=== PATIENT | male | born 1965 | race Two or more races ===

== ENCOUNTER 2021-03-08 10:54 | Inpatient (IN) | payer BC, OTHER ==
[~2021-03-08] VITALS: Ht 175.3 cm; Wt 90.7 kg
[2021-03-08 12:22] LABS: Basophils # (auto) 0.1 10 ^3/uL (0-0.2); Eosinophils # (auto) 0.3 10 ^3/uL (0-0.8); Eosinophils % (auto) 4.7 % (0.0-7.0); Hematocrit 45.2 % (41.0-53.0); Lymphocytes # (auto) 1.8 10 ^3/uL (0.4-5.4); Lymphocytes % (auto) 28.8 % (10.0-50.0); Mean Corpuscular Hemoglobin 28.9 pg (28.0-32.0); Mean Corpuscular Hgb Conc. 33.2 g/dL (32.0-36.0); Mean Corpuscular Volume 87.1 fL (80.0-100.0); Monocytes # (auto) 0.7 10 ^3/uL (0-1.3); Monocytes % (auto) 11.5 % (0.0-12.0); Neutrophils # (auto) 3.4 10 ^3/uL (1.6-8.6); Red Blood Cells 5.18 10^6/uL (4.5-5.90); Red Cell Distribution Width 14.6 % (11.8-14.3); White Blood Cell 6.4 10^3/uL (4.4-10.8)
[2021-03-08 12:37] LABS: Albumin 3.4 g/dL (3.4-5.0); Anion Gap 4 (5-15); Blood Urea Nitrogen 22 mg/dL (7-18); Calcium 8.7 mg/dL (8.5-10.1); Carbon Dioxide 29 mmol/L (21-32); Chloride 105 mmol/L (98-107); Glucose 112 mg/dL (74-106); Potassium 4.8 mmol/L (3.5-5.1); Sodium 138 mmol/L (136-145)
[2021-03-08 12:43] LABS: Alanine Aminotransferase 33 U/L (16-61); Alkaline Phosphatase 93 U/L (45-117); Aspartate Aminotransferase 24 U/L (15-37); BUN/Creatinine Ratio 27.5; Bilirubin, Total 0.4 mg/dL (0.2-1.0); GFR African American 129 mL/min; GFR Non-African American 106 mL/min; Total Protein 7.4 g/dL (6.4-8.2)
[2021-03-08] MEDS ORDERED: SODIUM CHLORIDE 0.9% 1,000 ML IV ONE ×2 (13:00)
[2021-03-08] MEDS ORDERED: NALOXONE HCL 1MG/ML 2ML SYRINGE IV ONE (13:00)
[2021-03-08 18:06] LABS: Urine Bacteria NONE SEEN /hpf (None Seen); Urine Blood Negative /uL (Negative); Urine Specific Gravity 1.017 (1.001-1.035); Urine WBC <1 /hpf (0 - 3)
[2021-03-08 18:18] LABS: Amphetamine Screen, Urine POSITIVE (NEGATIVE); Barbiturate Scree,Urine NEGATIVE (NEGATIVE); Benzodiazephine Screen, Urine NEGATIVE (NEGATIVE); Cocaine Screen, Urine NEGATIVE (NEGATIVE); Opiate Scree,Urine NEGATIVE (NEGATIVE); Phencyclidine Screen, Urine NEGATIVE (NEGATIVE)
[2021-03-08 18:29] LABS: Cannabinoid Screen, Urine NEGATIVE (NEGATIVE)
[2021-03-08] MEDS ORDERED: ACETAMINOPHEN 500 MG TAB PO PRN (18:30)
[2021-03-08] MEDS ORDERED: NITROGLYCERIN 0.4 MG SL TAB SL PRN (18:30)
[2021-03-08] MEDS ORDERED: ONDANSETRON HCL 4 MG/2 ML VIAL IV PRN (18:30)
[2021-03-08] MEDS ORDERED: MORPHINE SULF INJ 2 MG/ML SYRINGE 1ML IV PRN (18:30)
[2021-03-08] MEDS: SODIUM CHLORIDE 0.9% 1,000 ML IV SCH (20:04)
[2021-03-09] MEDS ORDERED: ASPirin-EC 81 mg tab PO SCH (10:00)
[2021-03-09] MEDS ORDERED: THIAMINE HCL 100 MG TAB PO SCH (10:00)
[2021-03-09] MEDS ORDERED: MULTIPLE VITAMIN TAB PO SCH (10:00)
[2021-03-09] MEDS: SODIUM CHLORIDE 0.9% 1,000 ML IV SCH (10:23)
[2021-03-09 11:00] VITALS: BP 140/84
== END 2021-03-09 11:31 | disposition left against medical advice (07) | DRG 91 ==
LOC: ER 10:54 → EDBD 10:54 → TELE 18:26
PROVIDERS: ADMIT Nurse Practitioner Acute Care; ATTEND Hospitalist
DX: G92 Toxic encephalopathy (principal); J69.0 Pneumonitis due to inhalation of food and vomit; F10.239 Alcohol dependence with withdrawal, unspecified; Z20.822 Contact with and (suspected) exposure to COVID-19; R13.10 Dysphagia, unspecified; F19.90 Other psychoactive substance use, unspecified, uncomplicated; Z53.29 Procedure and treatment not carried out because of patient's decision for other reasons; E11.9 Type 2 diabetes mellitus without complications; Y90.1 Blood alcohol level of 20-39 mg/100 ml; I69.320 Aphasia following cerebral infarction; E78.5 Hyperlipidemia, unspecified; F15.90 Other stimulant use, unspecified, uncomplicated; Z79.899 Other long term (current) drug therapy
CPT/HCPCS: 36415; 70450; 71045; 80053; 80307; 80320; 81001; 83605; 84484; 85025; 87426; 93005; 96360; 96361; 99291; G0378